=== PATIENT | female | born 1970 | race Caucasian/White ===

== ENCOUNTER 2016-08-18 13:30 | Emergency (ER) | payer OTHER ==
[~2016-08-18] VITALS: Ht 162.6 cm; Wt 81.8 kg
[~2016-08-18 13:30] MED LIST: ALBUINHPP INH; ARIP5TAB13 PO; LIB5 PO; METF1000 PO; NAPR500T PO; OXYC-176 PO; PRO20 PO; VIS25 PO; VIS50 PO
[2016-08-18 13:34] VITALS: BP 152/86; PULSE 86; RESP 15; O2SAT 96
--- NOTE | 2016-08-18 15:13 | ED.REPORT ---
HPI-Psychiatric Illness Date of Service Aug 18, 2016 ED Provider: Meghann Godinez MD The patient is a 46 year old female who presents to the emergency department complaining of worsening suicidal ideations. Over the last few weeks she has noticed worsening depression and thoughts of suicide. She states, "I just don't want to live anymore. I lost four of my boys, I lost my mom last year. I live with my daughter now and have a lot of responsibilities at her house. I feel overwhelmed." She states that she would overdose on medication. She has previously attempted suicide by overdose. She has been admitted psychiatrically in the past. The patient was recently started on Wellbutrin on August 08. She denies homicidal ideation, auditory hallucinations or visual hallucinations. She denies any physical complaints. Nursing Notes Stated Complaint: SUICIDAL Chief Complaint: Psychiatric Complaint Nursing Notes Reviewed: Yes Allergies: Coded Allergies: Contrast Media (Verified Allergy, Severe, AIR WAY CLOSES, 09/30/12) sumatriptan succinate (Verified Allergy, Unknown, 12/05/13) TAPE (Verified Adverse Reaction, Intermediate, REDNESS, 09/30/12) Scheduled Albuterol-Expunged Drug, Do Not Renew! (Albuterol-Expunged Drug, Do Not Renew!) 90 Mcg Puff 2 PUFFS INH Q4-6H Aripiprazole-Expunged Drug, Do Not Renew! (Aripiprazole-Expunged Drug, Do Not Renew!) 5 Mg Tablet 5 MG PO HS CHLORDIAZEPOXIDE-Expunged Drug, Do Not Renew! (ChlordiazePOXIDE-Expunged Drug, Do Not Renew!) 5 Mg Cap 5 MG PO Q6HP FLUoxetine-Expunged Drug, Do Not Renew! (FLUoxetine-Expunged Drug, Do Not Renew! ) 20 Mg Capsule 40 MG PO DAILY Metformin-Expunged Drug, Do Not Renew! (Metformin-Expunged Drug, Do Not Renew!) 1,000 Mg Tablet 1,000 MG PO BID Naproxen-Expunged Drug, Do Not Renew! (Naprosyn-Expunged Drug, Do Not Renew!) 500 Mg Tablet 500 MG PO BID Oxycodone/APAP-Expunged Drug, Do Not Renew! (Percocet 5/325-Expunged Drug, Do Not Renew!) 1 Each Tablet 1 TAB PO Q6HP hyDROXyzine-Expunged Drug, Do Not Renew! (hyDROXyzine-Expunged Drug, Do Not Renew!) 25 Mg Ud.cap 50-100 MG PO HSP FOR SLEEP Scheduled PRN hydrOXYzine-Expunged Drug, Do Not Renew! (Vistaril-Expunged Drug, Do Not Renew! ) 50 Mg Capsule 50 MG PO TID PRN PRN General Time Seen by MD: 15:10 Chief Complaint Depressed, Suicidal ideation Hx Obtained From: Patient Arrived By: Walk-in Onset Occurred: More than a week ago... Symptom Duration: Since onset Progression Since Onset: Constant, Gradually worsening Severity: Current: No pain currently Severity: Maximum: No pain Recent Healthcare: No recent hospitalization, Recent doctor visit Similar Sx Previous: Yes Risk-Psychiatric Illness Suicide Risk Stratification Suicide Risk Factors - Adult: : Previous attempt: Prior psych admission RF Statements: Risk factors reviewed Past Medical History Past Medical History Notes: No local PCP Past Medical History Reports: Diabetes mellitus Past Surgical History Carpal tunnel x2 Removal of left ovary Tubal ligation Reports: Hysterectomy Family History Noncontributory Smoking History Current Every Day Smoker Social History Alcohol Use: "Social" Drug Use: Denies drug use Other Social History: , Lives with children, Local resident Ambulatory Status Independent Review of Systems Psychiatric: Reports: Change mental status, Depression, Stress, Suicidal ideation, Denies: Hallucinations, auditory, Hallucinations, visual, Homicidal ideation Complete sys rev & neg: except as marked. Physical Exam Initial Vital Signs Vital Signs (First) Date Time Temp Pulse Resp B/P Pulse Ox O2 Delivery O2 Flow Rate FiO2 08/18/16 13:34 36.7 86 15 152/86 96 Room Air Initial VS: Reviewed Head / Eyes: Atraumatic, Normocephalic, PERRL ENT: Mucous membranes moist, Conjunctiva normal, No scleral icterus Neck: Supple, Non-tender, Full range of motion Cardiovascular: Regular rate & rhythm, Heart sounds normal, Intact distal pulses Abdomen / GI: Soft, Non-tender, No guarding, No rebound, No distention Extremities: Vascular intact, Neuro intact, No swelling, No tenderness Skin: Warm, Dry, No cyanosis General/Constitutional: Awake, Alert, Well appearing Neurologic: Oriented X3, Speech NL, No motor deficits, No sensory deficits Psychiatric: Not homicidal, No hallucinations Abnormal Thinking / Perception: Positive: Suicidal, with plan Tearful Respiratory / Chest: Breath sounds = bilat, No respiratory distress, No rales, No rhonchi Wheezing / Retractions: Positive: Wheezing mild Interpretation & Diagnostics Interpretation & Diagnostics: Urine drug test: positive for benzos and opiates Breathalyzer: 0 Lab Results Interpretation Result Diagram: 08/18/16 1610 08/18/16 1610 Test 08/18/16 14:40 08/18/16 16:10 08/18/16 16:17 Hold Urine Received (Received) White Blood Count 7.7th/mm3 (3.8-10.1) Red Blood Count 5.03mil/mm3 (3.90-5.20) Hemoglobin 15.6g/dL (12.0-15.6) Hematocrit 43.3% (35.0-46.0) Mean Corpuscular Volume 86.1fL (81-100) Mean Corpuscular Hemoglobin 31.0pg (27.0-35.0) Mean Corpuscular Hemoglobin Concent 36.0% (32.0-37.0) Red Cell Distribution Width 14.0% (12.3-15.4) Platelet Count 248bil/L (150-400) Neutrophils (%) (Auto) 42.3% (40-74) Lymphocytes (%) (Auto) 45.6% (14-46) Monocytes (%) (Auto) 8.7% (4-12) Eosinophils (%) (Auto) 2.1% (0-5) Basophils (%) (Auto) 1.0% (0-3) Sodium Level 141mEq/L (134-144) Potassium Level 4.1mEq/L (3.5-5.2) Chloride Level 102mEq/L (97-108) Carbon Dioxide Level 25mmol/L (18-29) Blood Urea Nitrogen 9mg/dL (6-24) Creatinine 0.58mg/dL (0.57-1.00) Estimat Glomerular Filtration Rate 159mL/min (>59) Glucose Level 245mg/dL (60-99) Calcium Level 9.1mg/dL (8.5-10.1) Total Bilirubin 0.7mg/dL (0.0-1.2) Aspartate Amino Transf (AST/SGOT) 48U/L (0-50) Alanine Aminotransferase (ALT/SGPT) 65U/L (0-32) Alkaline Phosphatase 62U/L (25-150) Total Protein 7.3g/dL (6.4-8.4) Albumin 4.2g/dL (3.4-5.0) Thyroid Stimulating Hormone (TSH) 0.833uIU/mL (0.450-4.500) Hold Winston Top Tube Received (Received) Re-Eval/Medical Decision Med Decision/Clinical Course 46-year-old female with past medical history of suicidal ideation with attempt by taking pills here feeling suicidal after experiencing several family stressors at home. Patient has a plan to overdose on the Wellbutrin that she was recently started on. She denies auditory and visual hallucinations. Differential diagnosis includes but is not limited to suicidal ideation versus electrolyte abnormality versus other psychiatric disorder versus urinary tract infection. From a lab standpoint, patient is medically cleared. He does not have any evidence of urinary tract infection. She has been accepted at [facility] for further psychiatric workup. She is aware and amenable to plan. Source of Hx: Old records Re-Evaluation/Progress : Time of Eval: 18:50 Re-Evaluation/Progress Note: The patient is aware of admission to [facility]. Consultation #1: Consulted With: railway track worker Call Returned at: 15:16 Note: spoke with the child welfare social worker who will evaluate the patient when she is medically cleared. Consultation #2: Consulted With: railway track worker Call Returned at: 18:41 Note: The patient has been accepted at [facility] and will now need to be certified. This process will take about 2 hours. Consultation #3: Consulted With: railway track worker Call Returned at: 19:57 Note: The patient is accepted at [facility] by Dr. Carson. Counseled Regarding: Diagnosis, Lab results, Need for transfer Discharge & Departure Impression: Primary Impression: Suicidal ideations )( Condition at Discharge: Clear for psych facility Disposition: Transfer, Psychiatric Inpt Discharge Condition All VS Reviewed: Yes Condition: Stable Referrals: NOPCP (PCP) Scribe Attestation Portions of this note were transcribed by Mirela Stringer. IDr. Godinez personally performed the history, physical exam and medical decision-making; I reviewed and confirmed the accuracy of the information in the transcribed note. Signed by : Lalitha Posada, 08/18/2016 and 2330. Meghann Godinez MD Aug 18, 2016 15:13 Myke,Mirela Mendez Aug 18, 2016 15:22
[2016-08-18 16:21] LABS: EOSINOPHILS % (AUTO) 2.1 % (0-5); MONOCYTES % (AUTO) 8.7 % (4-12); Mean Corpuscular Volume 86.1 fL (81-100); NEUTROPHILS % (AUTO) 42.3 % (40-74); Platelet Count 248 bil/L (150-400)
[2016-08-18 17:30] VITALS: BP 134/69; PULSE 68; RESP 20; O2SAT 98
[2016-08-18] MEDS ORDERED: OLANZapine Zydis ODT 5 mg Tablet PO SCH (22:25)
[2016-08-18 23:01] VITALS: BP 140/87; PULSE 68; RESP 20; O2SAT 96
[2016-08-18 23:47] VITALS: BP 140/87; PULSE 68; RESP 20; O2SAT 96
== END 2016-08-18 23:49 | disposition short-term general hospital (02) ==
LOC: SED 13:30
DX: R45.851 Suicidal ideations (principal); E11.9 Type 2 diabetes mellitus without complications; F17.200 Nicotine dependence, unspecified, uncomplicated

== ENCOUNTER 2016-12-02 18:33 | Emergency (ER) | payer OTHER ==
[~2016-12-02] VITALS: Ht 162.6 cm; Wt 81.9 kg
[2016-12-02 18:35] VITALS: BP 152/84; PULSE 72; RESP 16; O2SAT 98
[2016-12-02] MEDS ORDERED: PROP10TA8 PO (18:41)
[2016-12-02] MEDS ORDERED: RANI300T4 PO (18:41)
[2016-12-02] MEDS ORDERED: LORA0.5T PO (18:41)
[2016-12-02] MEDS ORDERED: BUPR150T12 PO (18:41)
[2016-12-02] MEDS ORDERED: PREG100C PO (18:41)
[2016-12-02] MEDS ORDERED: QUET400T35 PO (18:41)
--- NOTE | 2016-12-02 19:01 | ED.REPORT ---
HPI-Dental/Mouth Prob Date of Service December 02, 2016 ED Provider: Jovan Sorensen MD Patient is a 46 year old male who presents to the ED complaining of tooth pain onset earlier today. She denies fevers, chills, neck swelling, jaw pain, or any other symptoms. She has a dentist appointment in 5 days. No drooling, no difficulty swallowing, no difficulty breathing. She reports that she has not seen a dentist in many years. She is trying to move her appointment earlier and may be able to see a dentist tomorrow morning. She requests pain management. No other complaints today. Nursing Notes Stated Complaint: TOOTH ACHE Chief Complaint: Dental Nursing Notes Reviewed: Yes Allergies: Coded Allergies: Contrast Media (Verified Allergy, Severe, AIR WAY CLOSES, 12/02/16) sumatriptan succinate (Verified Allergy, Unknown, 12/02/16) TAPE (Verified Adverse Reaction, Intermediate, REDNESS, 12/02/16) Scheduled Albuterol-Expunged Drug, Do Not Renew! (Albuterol-Expunged Drug, Do Not Renew!) 90 Mcg Puff 2 PUFFS INH Q4-6H Bupropion ER (Bupropion ER) 150 Mg Tablet.er 150 MG PO BID CHLORDIAZEPOXIDE-Expunged Drug, Do Not Renew! (ChlordiazePOXIDE-Expunged Drug, Do Not Renew!) 5 Mg Cap 5 MG PO Q6HP FLUoxetine-Expunged Drug, Do Not Renew! (FLUoxetine-Expunged Drug, Do Not Renew! ) 20 Mg Capsule 40 MG PO DAILY Lorazepam (Lorazepam) 0.5 Mg Tablet 1 TAB PO DAILY Metformin-Expunged Drug, Do Not Renew! (Metformin-Expunged Drug, Do Not Renew!) 1,000 Mg Tablet 1,000 MG PO BID Penicillin V Potassium (Penicillin V Potassium) 500 Mg Tablet 500 MG PO QID Pregabalin (Lyrica) 100 Mg Capsule 100 MG PO TID Propranolol HCl (Propranolol HCl) 10 Mg Tablet 10 MG PO BID Quetiapine Fumarate (Quetiapine Fumarate) 400 Mg Tablet 600 MG PO HS Ranitidine (Ranitidine) 300 Mg Tablet 300 MG PO BID hyDROXyzine-Expunged Drug, Do Not Renew! (hyDROXyzine-Expunged Drug, Do Not Renew!) 25 Mg Ud.cap 50-100 MG PO HSP FOR SLEEP General Time Seen by MD: 18:48 Chief Complaint Tooth pain Hx Obtained From: Patient Arrived By: Walk-in Past Medical History Past Medical History Notes: No local PCP Past Medical History Reports: COPD, Diabetes mellitus Past Surgical History Carpal tunnel x2 Removal of left ovary Tubal ligation Reports: Hysterectomy Family History Noncontributory Smoking History Current Every Day Smoker Social History Alcohol Use: "Social" Drug Use: Denies drug use Other Social History: , Lives with children, Local resident Ambulatory Status Independent Review of Systems Review of Systems Note: -Neck swelling, jaw pain Constitutional: Denies: Chills, Fever Ears / Nose / Throat: Reports: Toothache Complete sys rev & neg: except as marked. Physical Exam Initial Vital Signs Vital Signs (First) Date Time Temp Pulse Resp B/P Pulse Ox O2 Delivery O2 Flow Rate FiO2 12/02/16 18:35 36.8 72 16 152/84 98 Room Air General/Constitutional: Well-developed, Well-nourished Head / Eyes: Atraumatic, Normocephalic Respiratory: Breath sounds normal, Clear to auscultation, No respiratory distress Cardiovascular: Regular rate & rhythm, Heart sounds normal, Intact distal pulses Abdomen / GI: Soft, Non-tender, No guarding, No rebound, No distention Skin: Warm, Dry Neurologic: Alert, Oriented, Nonfocal Psychiatric: Mood/affect normal, Behavior normal, Normal thought content ENT: No pooling of secretions Significant decay about tooth 17, no abscess or cellulitis Tooth 18 is absent poor dentition throughout no stridor or difficult handling secretions. Uvula midline Neck: No swelling Tender left cervical adenopathy Re-Eval/Medical Decision Med Decision/Clinical Course Patient is a 46-year-old female who presents with pain about tooth number 17. Examination reveals significant dental caries and decay about this tooth. She has poor dentition throughout. She has not seen a dentist in several years. She has an appointment with Denzel Jo in about 5 days and is also trying to get in and see a dentist tomorrow morning. She requests pain medication. Here she was treated with 30 mg of intramuscular Toradol and one tablet of Loving with good effect. I prescribed a 7 day course of penicillin. She will follow up tomorrow with her dentist. At this time, there is no evidence of Felix angina , dental abscess and her airway is widely patent. She is nontoxic in appearance. I feel that she is appropriate for outpatient management. Prior to discharge follow-up and return precautions were reviewed in detail with the patient who verbalized understanding and agreement with the plan. The patient was discharged in stable condition. Re-Evaluation/Progress : Time of Eval: 19:12 Re-Evaluation/Progress Note: Discussed plan for discharge. Patient understands and agrees with plan. All questions addressed at this time. Counseled Regarding: Diagnosis, Need for follow-up, When/why to return to ED Discharge & Departure Primary Impression: Dental caries Additional Impression: Pain, dental Disposition: Home Discharge Condition All VS Reviewed: Yes Condition: Improved Additional Instructions: Thank you for seeking care at the emergency room. It is difficult for us to make definitive diagnoses in the ED but we believe that you are experiencing dental caries. Our primary goal today in the ED was to evaluate you for any life-threatening conditions. Your evaluation was reassuring. You will be discharged with a prescription for Penicillin. You may take Ibuprofen (up to 800 mg, 3 times a day) for your pain. You should follow-up with your dentist as soon as possible. You should return to the ED immediately if you develop fevers, vomiting, neck swelling, abdominal pain, or any other concerning signs or symptoms. Thank you for letting us partake in your care today. Referrals: Pino Eubanks MD (PCP) Scribe Attestation Portions of this note were transcribed by Amy Varghese. I, Dr. Sorensen personally performed the history, physical exam and medical decision-making; I reviewed and confirmed the accuracy of the information in the transcribed note. Signed by: Amy Varghese 12/02/2016, 1936 copies to: Pino Eubanks MD, Beck O MD December 02, 2016 19:01 AMY VARGHESE December 02, 2016 19:12
[2016-12-02] MEDS ORDERED: PENI500T PO (19:15)
[2016-12-02] MEDS ORDERED: HYDROcodone-APAP 5-325 mg Tablet PO ONE (19:15)
[2016-12-02 19:28] VITALS: BP 136/52; PULSE 88; RESP 16; O2SAT 98
== END 2016-12-02 19:28 | disposition home or self-care (01) ==
LOC: SED 18:33
DX: K02.9 Dental caries, unspecified (principal); K08.89 Other specified disorders of teeth and supporting structures; E11.9 Type 2 diabetes mellitus without complications; J44.9 Chronic obstructive pulmonary disease, unspecified; F17.200 Nicotine dependence, unspecified, uncomplicated; Z88.8 Allergy status to other drugs, medicaments and biological substances; Z91.041 Radiographic dye allergy status; Z91.048 Other nonmedicinal substance allergy status
CPT/HCPCS: 96372; 99283; J1885

== ENCOUNTER 2016-12-06 10:06 | Emergency (ER) | payer OTHER ==
[~2016-12-06] VITALS: Ht 162.6 cm; Wt 81.8 kg
[~2016-12-06 10:06] MED LIST changes: -ARIP5TAB13 PO; +BUPR150T12 PO; +LORA0.5T PO; -NAPR500T PO; -OXYC-176 PO; +PENI500T PO; +PREG100C PO; +PROP10TA8 PO; +QUET400T35 PO; +RANI300T4 PO; -VIS50 PO
[2016-12-06 10:33] VITALS: BP 145/76; PULSE 76; RESP 14; O2SAT 96
--- NOTE | 2016-12-06 10:41 | ED.REPORT ---
HPI-Dental/Mouth Prob Date of Service December 06, 2016 ED Provider: Dayne Gaona MD The patient is a 46 year old female with history of diabetes mellitus, who presents to the emergency department complaining of left lower dental pain. She has an appointment to see a dentist tomorrow. She presents today because she was up all night in pain. She was seen here 1 week ago for the same and was given penicillin and a Toradol injection. She has also tried to using oral gel with some relief. She did not finish the penicillin because she developed a yeast infection. Nursing Notes Stated Complaint: TOOTHACHE Chief Complaint: Dental Nursing Notes Reviewed: Yes Allergies: Coded Allergies: Contrast Media (Verified Allergy, Severe, AIR WAY CLOSES, 12/02/16) sumatriptan succinate (Verified Allergy, Unknown, 12/02/16) TAPE (Verified Adverse Reaction, Intermediate, REDNESS, 12/02/16) Scheduled Albuterol-Expunged Drug, Do Not Renew! (Albuterol-Expunged Drug, Do Not Renew!) 90 Mcg Puff 2 PUFFS INH Q4-6H Amoxicillin/Clav K 875-125 mg (Augmentin 875-125 mg) 1 Each Tablet 1 TABLET PO BID Bupropion ER (Bupropion ER) 150 Mg Tablet.er 150 MG PO BID CHLORDIAZEPOXIDE-Expunged Drug, Do Not Renew! (ChlordiazePOXIDE-Expunged Drug, Do Not Renew!) 5 Mg Cap 5 MG PO Q6HP FLUoxetine-Expunged Drug, Do Not Renew! (FLUoxetine-Expunged Drug, Do Not Renew! ) 20 Mg Capsule 40 MG PO DAILY Lorazepam (Lorazepam) 0.5 Mg Tablet 1 TAB PO DAILY Metformin-Expunged Drug, Do Not Renew! (Metformin-Expunged Drug, Do Not Renew!) 1,000 Mg Tablet 1,000 MG PO BID Penicillin V Potassium (Penicillin V Potassium) 500 Mg Tablet 500 MG PO QID Pregabalin (Lyrica) 100 Mg Capsule 100 MG PO TID Propranolol HCl (Propranolol HCl) 10 Mg Tablet 10 MG PO BID Quetiapine Fumarate (Quetiapine Fumarate) 400 Mg Tablet 600 MG PO HS Ranitidine (Ranitidine) 300 Mg Tablet 300 MG PO BID hyDROXyzine-Expunged Drug, Do Not Renew! (hyDROXyzine-Expunged Drug, Do Not Renew!) 25 Mg Ud.cap 50-100 MG PO HSP FOR SLEEP Scheduled PRN Hydrocodone-Acetaminophen 5-325 mg (Hydrocodone-Acetaminophen 5-325 mg) 1 Each Tablet 1 TABLET PO Q4H PRN PRN For Pain General Time Seen by MD: 10:39 Chief Complaint Tooth pain Hx Obtained From: Patient Arrived By: Walk-in Onset Occurred: More than a week ago... Symptom Duration: Since onset Quality: Painful Severity: Current: Moderate Severity: Maximum: Severe Recent Healthcare: No recent hospitalization, Recent doctor visit Similar Sx Previous: Yes Past Medical History Past Medical History Notes: No local PCP Past Medical History Reports: COPD, Diabetes mellitus Past Surgical History Carpal tunnel x2 Removal of left ovary Tubal ligation Reports: Hysterectomy Family History Noncontributory Smoking History Current Every Day Smoker Social History Alcohol Use: "Social" Drug Use: Denies drug use Other Social History: , Lives with children, Local resident Ambulatory Status Independent Review of Systems Ears / Nose / Throat: Reports: Mouth pain, Toothache Complete sys rev & neg: except as marked. Physical Exam Initial Vital Signs Vital Signs (First) Date Time Temp Pulse Resp B/P Pulse Ox O2 Delivery O2 Flow Rate FiO2 12/06/16 10:33 36.8 76 14 145/76 96 12/06/16 11:37 Room Air Initial VS: Reviewed Head / Eyes: Atraumatic, Normocephalic, PERRL Respiratory: Breath sounds normal, Clear to auscultation, No respiratory distress Cardiovascular: Regular rate & rhythm, Heart sounds normal, Intact distal pulses Abdomen / GI: Soft, Non-tender, No guarding, No rebound, No distention Lymphatic: No lymphadenopathy Extremities: Vascular intact, Neuro intact, No swelling, No tenderness Skin: Warm, Dry, No cyanosis Neurologic: Alert, Oriented, Nonfocal Psychiatric: Mood/affect normal, Behavior normal, Normal thought content ENT: Airway patent Left lower dental caries. No abscess. No fluctuance or erythema. Neck: Supple, No meningismus, Full range of motion, No adenopathy, No swelling , Non-tender, No masses General/Constitutional: Awake, Alert, Cooperative Re-Eval/Medical Decision Med Decision/Clinical Course 46-year-old female presenting with left dental pain 1 week She stopped her antibiotics due to yeast infection. She is to follow with dentist tomorrow. Here with increasing pain. She has left lower dental caries. There is no erythema or fluctuance to suggest abscess. Patient was given Toradol with improvement in pain. She was given another prescription in for Augmentin. Given fluconazole here for a yeast infection. Follow-up dentist tomorrow as scheduled. Source of Hx: Old records Re-Evaluation/Progress : Time of Eval: 10:57 Re-Evaluation/Progress Note: Discussed plan for discharge. All questions were addressed. Counseled Regarding: Diagnosis, Need for follow-up, When/why to return to ED Discharge & Departure Primary Impression: Dental infection Additional Impressions: Dental caries Vulvovaginal candidiasis Disposition: Home Discharge Condition All VS Reviewed: Yes Condition: Stable Patient Instructions: Dental Caries (ED), Vulvovaginal Candidiasis (GEN) Additional Instructions: Thank you for entrusting us with your care today. Make sure that you go to the appointment that you have scheduled with the dentist tomorrow. Take the antibiotics as prescribed. It is important to finish the entire course. Take the fluconazole for the yeast infection. Use Thompson as needed for your pain. Return to the emergency department if you develop increased pain, fever, chills , vomiting, or any other new or concerning symptoms. Referrals: Pino Eubanks MD (PCP) Scribe Attestation Portions of this note were transcribed by Mirela Stringer. I, Dr. Gaona personally performed the history, physical exam and medical decision-making; I reviewed and confirmed the accuracy of the information in the transcribed note. Signed by: Lalitha Posada, 12/06/2016 at 1115. copies to: Pino Eubanks MD, Ben M MD December 06, 2016 10:41 Mirela Stringer December 06, 2016 10:52
[2016-12-06] MEDS ORDERED: HYDR-4003 PO (11:00)
[2016-12-06] MEDS ORDERED: AMOX-366 PO (11:04)
[2016-12-06 11:37] VITALS: BP 136/72; PULSE 72; RESP 16; O2SAT 96
== END 2016-12-06 11:00 | disposition home or self-care (01) ==
LOC: SED 10:06
DX: K04.7 Periapical abscess without sinus (principal); K02.9 Dental caries, unspecified; B37.3 Candidiasis of vulva and vagina; J44.9 Chronic obstructive pulmonary disease, unspecified; E11.9 Type 2 diabetes mellitus without complications; F17.200 Nicotine dependence, unspecified, uncomplicated; Z88.8 Allergy status to other drugs, medicaments and biological substances; Z91.041 Radiographic dye allergy status; Z91.048 Other nonmedicinal substance allergy status
CPT/HCPCS: 96372; 99283; J1885

== ENCOUNTER 2016-12-11 19:07 | Emergency (ER) | payer OTHER ==
[~2016-12-11] VITALS: Ht 162.6 cm; Wt 81.8 kg
[~2016-12-11 19:07] MED LIST changes: +AMOX-366 PO; +HYDR-4003 PO
[2016-12-11 19:28] VITALS: BP 148/85; PULSE 70; RESP 20; O2SAT 97
[2016-12-11] MEDS ORDERED: _HYDROcodone/APAP 5-325 mg Tablet PO PRN (20:25)
[2016-12-11] MEDS ORDERED: Bupivacaine-MPF 0.5% 30 mL Inj ONE (20:25)
--- NOTE | 2016-12-11 20:26 | ED.REPORT ---
HPI-Dental/Mouth Prob Date of Service December 11, 2016 ED Provider: Adonis Montesinos DO A 46 year old female with a history of diabetes presents to the ED complaining of upper left tooth pain. The pain radiates into her left ear and the left side of her neck. The pt has been seen in the ED for this pain and is trying to arrange for an appointment at [facility], [place]. She has been given Toradol and ibuprofen with minimal relief. Nursing Notes Stated Complaint: TOOTH PAIN Chief Complaint: Dental Nursing Notes Reviewed: Yes Allergies: Coded Allergies: Contrast Media (Verified Allergy, Severe, AIR WAY CLOSES, 12/11/16) sumatriptan succinate (Verified Allergy, Unknown, 12/11/16) TAPE (Verified Adverse Reaction, Intermediate, REDNESS, 12/11/16) Scheduled Albuterol-Expunged Drug, Do Not Renew! (Albuterol-Expunged Drug, Do Not Renew!) 90 Mcg Puff 2 PUFFS INH Q4-6H Amoxicillin/Clav K 875-125 mg (Augmentin 875-125 mg) 1 Each Tablet 1 TABLET PO BID Bupropion ER (Bupropion ER) 150 Mg Tablet.er 150 MG PO BID CHLORDIAZEPOXIDE-Expunged Drug, Do Not Renew! (ChlordiazePOXIDE-Expunged Drug, Do Not Renew!) 5 Mg Cap 5 MG PO Q6HP FLUoxetine-Expunged Drug, Do Not Renew! (FLUoxetine-Expunged Drug, Do Not Renew! ) 20 Mg Capsule 40 MG PO DAILY Lorazepam (Lorazepam) 0.5 Mg Tablet 1 TAB PO DAILY Metformin-Expunged Drug, Do Not Renew! (Metformin-Expunged Drug, Do Not Renew!) 1,000 Mg Tablet 1,000 MG PO BID Penicillin V Potassium (Penicillin V Potassium) 500 Mg Tablet 500 MG PO QID Pregabalin (Lyrica) 100 Mg Capsule 100 MG PO TID Propranolol HCl (Propranolol HCl) 10 Mg Tablet 10 MG PO BID Quetiapine Fumarate (Quetiapine Fumarate) 400 Mg Tablet 600 MG PO HS Ranitidine (Ranitidine) 300 Mg Tablet 300 MG PO BID hyDROXyzine-Expunged Drug, Do Not Renew! (hyDROXyzine-Expunged Drug, Do Not Renew!) 25 Mg Ud.cap 50-100 MG PO HSP FOR SLEEP Scheduled PRN Hydrocodone-Acetaminophen 5-325 mg (Hydrocodone-Acetaminophen 5-325 mg) 1 Each Tablet 1 TABLET PO Q4H PRN PRN For Pain General Time Seen by MD: 20:04 Chief Complaint Mouth pain Hx Obtained From: Patient Arrived By: Walk-in Onset Occurred: More than a week ago... Symptom Duration: Since onset Recent Healthcare: No recent hospitalization, Recent doctor visit Similar Sx Previous: Yes Past Medical History Past Medical History Notes: No local PCP Past Medical History Reports: COPD, Diabetes mellitus Past Surgical History Carpal tunnel x2 Removal of left ovary Tubal ligation Reports: Hysterectomy Family History Noncontributory Smoking History Current Every Day Smoker Social History Alcohol Use: "Social" Drug Use: Denies drug use Other Social History: , Lives with children, Local resident Ambulatory Status Independent Review of Systems Review of Systems Note: pain radiating into left ear and neck Ears / Nose / Throat: Reports: Toothache Respiratory: Denies: Non-productive cough, Shortness of breath GI: Denies: Abdominal pain, Vomiting Complete sys rev & neg: except as marked. Physical Exam Initial Vital Signs Vital Signs (First) Date Time Temp Pulse Resp B/P Pulse Ox O2 Delivery O2 Flow Rate FiO2 12/11/16 19:28 37.5 70 20 148/85 97 Room Air Initial VS: Reviewed ENT: Airway patent, Mucous membranes moist carious left tooth, number 17 no sign of gingival infection no abscess, stridor, trismus or drooling Neck: Atraumatic, Supple, Full range of motion General/Constitutional: Awake, Alert Distress / Hydration: Positive: Distress moderate Head / Eyes: Atraumatic, Normocephalic, PERRL, EOMI Respiratory / Chest: Atraumatic, Breath sounds NL, Breath sounds = bilat, No respiratory distress Cardiovascular: Heart rate NL, Regular rhythm, Heart sounds NL Neurologic: Oriented X3, Speech NL, No motor deficits, No sensory deficits Abdomen: Atraumatic, Soft, Non-tender Back: Atraumatic, Full range of motion Upper Extremity / MS: Atraumatic, Full range of motion Lower Extremity / Pelvis / MS: Atraumatic, Full range of motion Skin: Color NL, No rash, Warm, Dry Psychiatric: Affect NL, Mood NL Interpretation & Diagnostics Pulse Oximetry Interpretation Pulse Oximetry Interpretation: 97% on room air Pulse Oximetry: Pulse Ox normal Procedures Dental Nerve Block Time: 20:36 Block Performed by: ED physician Consent / Setup / Site Prep: Informed consent provided, Consent from patient , Time-out performed, Mucous membrane dried, Topical anesthetic tasha, Hand hygiene observed, Stand sterile technique, Sterile drapes applied Local Anesthesia: Bupivacaine 0.5% Post-Procedure / Complications: No complications, Condition improved, Tolerated procedure well, Patient stable, No bleeding Re-Eval/Medical Decision Re-Evaluation/Progress #1: Time of Eval: 20:35 Patient Status: Condition improved Re-Evaluation/Progress Note: Pt rechecked and dental block is performed without complication. Re-Evaluation/Progress #2: Time of Eval: 21:06 Patient Status: Condition improved Re-Evaluation/Progress Note: Pt rechecked, who is feeling significantly better. The diagnosis and plan for discharge are discussed. The pt understands and agrees with the plan. All questions are addressed at this time. Counseled Regarding: Diagnosis, Need for follow-up, When/why to return to ED Discharge & Departure Primary Impression: Dental caries Additional Impression: Odontalgia Disposition: Home Discharge Condition All VS Reviewed: Yes Condition: Stable Patient Instructions: Dental Caries (ED) Additional Instructions: Take 1 to 2 Vicodin every 6 hours as needed for severe pain. Do not drink, drive , or consume acetaminophen while taking the Vicodin. Finish your antibiotics. Call [facility] twice daily as previously instructed. Return to the emergency department if you develop any new or worsening symptoms. Referrals: Pino Eubanks MD (PCP) Scribe Attestation Portions of this note were transcribed by Mirza Montelongo. I, Dr. Montesinos personally performed the history, physical exam and medical decision-making; I reviewed and confirmed the accuracy of the information in the transcribed note. Signed by: Lalitha Winchester, 12/11/16 and 2131. copies to: Pino Eubanks MD, Todd P DO December 11, 2016 20:26 MIRZA MONTELONGO December 11, 2016 20:38 Adonis Montesinos DO December 11, 2016 20:26 MIRZA MONTELONGO December 11, 2016 20:38
[2016-12-11] MEDS: Bupivacaine 0.5% 50 mL Inj INFILTRATE ONE ×2 (20:46→20:47)
== END 2016-12-11 21:09 | disposition home or self-care (01) ==
LOC: SED 19:07
DX: K02.9 Dental caries, unspecified (principal); K08.89 Other specified disorders of teeth and supporting structures; E11.9 Type 2 diabetes mellitus without complications; F17.200 Nicotine dependence, unspecified, uncomplicated; Z79.84 Long term (current) use of oral hypoglycemic drugs; Z79.899 Other long term (current) drug therapy; Z88.8 Allergy status to other drugs, medicaments and biological substances; Z91.041 Radiographic dye allergy status

== ENCOUNTER 2017-02-26 22:26 | Emergency (ER) | payer OTHER ==
[~2017-02-26] VITALS: Ht 162.6 cm; Wt 79.5 kg
[2017-02-26 22:29] VITALS: BP 149/100; PULSE 67; RESP 16; O2SAT 97
--- NOTE | 2017-02-26 22:34 | ED.REPORT ---
HPI-Dental/Mouth Prob Date of Service Feb 26, 2017 ED Provider: Dayne Gaona MD Pt is a 46 y/o female w/ a hx of DM, COPD, presenting to the ED c/o dental pain onset 2 days ago. The patient had a left upper molar pulled 6 days ago and for the past 2 days has been experiencing pain over the associated site. She c/o associated nausea. She has been taking Aleve and Excedrin without relief. Pt denies fever, dysphagia, SOB, vomiting, facial/throat/neck swelling. Nursing Notes Stated Complaint: MOUTH PAIN Chief Complaint: Dental Nursing Notes Reviewed: Yes Allergies: Coded Allergies: Contrast Media (Verified Allergy, Severe, AIR WAY CLOSES, 02/26/17) sumatriptan succinate (Verified Allergy, Unknown, 02/26/17) TAPE (Verified Adverse Reaction, Intermediate, REDNESS, 02/26/17) Scheduled Albuterol-Expunged Drug, Do Not Renew! (Albuterol-Expunged Drug, Do Not Renew!) 90 Mcg Puff 2 PUFFS INH Q4-6H Amoxicillin/Clav K 875-125 mg (Augmentin 875-125 mg) 1 Each Tablet 1 TABLET PO BID Bupropion ER (Bupropion ER) 150 Mg Tablet.er 150 MG PO BID CHLORDIAZEPOXIDE-Expunged Drug, Do Not Renew! (ChlordiazePOXIDE-Expunged Drug, Do Not Renew!) 5 Mg Cap 5 MG PO Q6HP Cephalexin (Keflex) 500 Mg Capsule 500 MG PO QID FLUoxetine-Expunged Drug, Do Not Renew! (FLUoxetine-Expunged Drug, Do Not Renew! ) 20 Mg Capsule 40 MG PO DAILY Lorazepam (Lorazepam) 0.5 Mg Tablet 1 TAB PO DAILY Metformin-Expunged Drug, Do Not Renew! (Metformin-Expunged Drug, Do Not Renew!) 1,000 Mg Tablet 1,000 MG PO BID Penicillin V Potassium (Penicillin V Potassium) 500 Mg Tablet 500 MG PO QID Pregabalin (Lyrica) 100 Mg Capsule 100 MG PO TID Propranolol HCl (Propranolol HCl) 10 Mg Tablet 10 MG PO BID Quetiapine Fumarate (Quetiapine Fumarate) 400 Mg Tablet 600 MG PO HS Ranitidine (Ranitidine) 300 Mg Tablet 300 MG PO BID hyDROXyzine-Expunged Drug, Do Not Renew! (hyDROXyzine-Expunged Drug, Do Not Renew!) 25 Mg Ud.cap 50-100 MG PO HSP FOR SLEEP Scheduled PRN Hydrocodone-Acetaminophen 5-325 mg (Hydrocodone-Acetaminophen 5-325 mg) 1 Each Tablet 1 TABLET PO Q4H PRN PRN For Pain General Time Seen by MD: 22:33 Chief Complaint Tooth pain Hx Obtained From: Patient Arrived By: Walk-in Onset Occurred: 2 days ago Symptom Duration: Since onset Location: : Tooth upper L molar Quality: Painful Severity: Current: Moderate Severity: Maximum: Moderate Past Medical History Past Medical History Dental pain Reports: COPD, Diabetes mellitus Past Surgical History Carpal tunnel x2 Removal of left ovary Tubal ligation Reports: Hysterectomy Family History Noncontributory Smoking History Current Every Day Smoker Social History Alcohol Use: "Social" Drug Use: Denies drug use Other Social History: , Lives with children, Local resident Ambulatory Status Independent Review of Systems Constitutional: Denies: Chills, Fever Ears / Nose / Throat: Reports: Toothache, Denies: Throat swelling Respiratory: Denies: Shortness of breath GI: Reports: Nausea, Denies: Dysphagia, Vomiting Complete sys rev & neg: except as marked. Physical Exam Initial Vital Signs Vital Signs (First) Date Time Temp Pulse Resp B/P Pulse Ox O2 Delivery O2 Flow Rate FiO2 17 22:29 36.0 67 16 149/100 97 Room Air Initial VS: Reviewed, Vital signs normal Head / Eyes: Atraumatic, Normocephalic Respiratory: No respiratory distress Cardiovascular: Intact distal pulses Extremities: Vascular intact, Neuro intact Skin: Warm, Dry, No cyanosis Neurologic: Alert, Oriented, Nonfocal Psychiatric: Mood/affect normal, Behavior normal, Normal thought content ENT: Atraumatic, Airway patent, Mucous membranes moist, Pharynx NL, No pooling of secretions, No trismus, No facial swelling Left upper molar is s/p extraction. No erythema or discharge Tender over lateral gum line Neck: Atraumatic, Supple, No meningismus, Full range of motion, No swelling General/Constitutional: Awake, Alert, No acute distress, Well appearing, Cooperative, Not toxic appearing Appearance / Presentation: Positive: Uncomfortable Re-Eval/Medical Decision Med Decision/Clinical Course 38-year-old female presenting complaining of dental pain. Patient had a molar extracted one week ago and was feeling fine until 2 days ago when pain started to worsen. She is diffusely tender over the point of extraction. There is no evidence of abscess. There is no erythema. We will treat with Keflex for possible developing infection. She was given a dose of Toradol. She is to follow-up with her dentist tomorrow. Re-Evaluation/Progress : Time of Eval: 22:47 Re-Evaluation/Progress Note: Pt rechecked. Informed pt of plan for discharge. Pt understands and agrees with plan for discharge. F/U instructions and RTER warnings given. All questions addressed. Counseled Regarding: Diagnosis, Need for follow-up, When/why to return to ED Discharge & Departure Primary Impression: Pain, dental Disposition: Home Discharge Condition All VS Reviewed: Yes Condition: Improved Additional Instructions: Given your story, I suspect you may have a dental infection. Take the antibiotics as prescribed. Return to the emergency department if you experience uncontrolled pain, high fever, trouble breathing, trouble swallowing, neck/face/throat swelling, or for other concerning symptoms. Follow-up with your dentist later this week. Referrals: Pino Eubanks MD (PCP) Scribe Attestation Portions of this note were transcribed by José Manuel Myles. I, Dr. Gaona personally performed the history, physical exam and medical decision-making; I reviewed and confirmed the accuracy of the information in the transcribed note. copies to: Pino Eubanks MD, Ben M MD Feb 26, 2017 22:34 JOSÉ MANUEL MYLES Feb 26, 2017 22:52
[2017-02-26] MEDS ORDERED: CEPH-512 PO (22:52)
[2017-02-26 23:41] VITALS: BP 159/79; PULSE 64; RESP 20; O2SAT 98
== END 2017-02-26 23:35 | disposition home or self-care (01) ==
LOC: SED 22:26
DX: K08.89 Other specified disorders of teeth and supporting structures (principal); E11.9 Type 2 diabetes mellitus without complications; F17.200 Nicotine dependence, unspecified, uncomplicated; Z90.710 Acquired absence of both cervix and uterus; Z88.8 Allergy status to other drugs, medicaments and biological substances; Z91.041 Radiographic dye allergy status
CPT/HCPCS: 96372; 99283; J1885